=== PATIENT | male | born 1970 | race American Indian/Alaskan Native ===

== ENCOUNTER 2017-09-08 10:02 | Outpatient (CLI) | payer BC ==
--- NOTE | 2017-09-08 10:45 | XRay Report ---
ROUTINE CHEST, TWO VIEWS: HISTORY: Cough with hemoptysis. The trachea, heart, mediastinal contour, lung germain and bony thorax are unremarkable. IMPRESSION: Unremarkable chest x-ray.
== END 2017-09-08 10:03 | disposition home or self-care (01) ==
LOC: SPVIMAG 10:02
PROVIDERS: ATTEND Internal Medicine
DX: R04.2 Hemoptysis (principal)
CPT/HCPCS: 71046